=== PATIENT | male | born 1975 | race Caucasian/White ===

== ENCOUNTER 2021-01-22 07:34 | Emergency (ER) | payer OTHER ==
[~2021-01-22] VITALS: Ht 188 cm; Wt 109.0 kg
[2021-01-22 07:55] VITALS: BP 115/89
--- NOTE | 2021-01-22 08:22 | RAD ---
XR EXAM OF ANKLE_LEFT 3V History: Reason: high ankle pain, r/o trauma / Spl. Instructions: / History: Technique: 3 views left ankle Comparison: None. Findings: Normal alignment. Symmetric ankle mortise. No fracture. Impression: 1. No acute osseous abnormality. Electronically signed by: Russ Godfrey DO (01/22/2021 8:19 AM) [id number]
--- NOTE | 2021-01-22 08:37 | RAD ---
INDICATION: Reason: ankle pain / Spl. Instructions: / History: COMPARISON: None. TECHNIQUE: Grayscale, color and doppler ultrasound images were obtained of the left lower extremity v enous vasculature. LEFT: No thrombus identified in the common femoral vein, femoral vein, popliteal vein or visualized calf ve ins. IMPRESSION: * No thrombus identified in deep venous system of the left lower extremity. Electronically signed by: Osman Hayes MD (01/22/2021 8:34 AM) [id number]
--- NOTE | 2021-01-22 08:49 | PHYS DOC ---
Past History Additional Past Medical Histor: PE, Past Surgical History: Cholecystectomy Additional Past Surgical Histo: cardiac cath, PFO Alcohol Use: Rarely General Adult EDM: Chief Complaint: LOWER EXT PAIN HPI: HPI: 45-year-old male past medical history of gerd, PE on Eliquis and PFO, presents the ED with complaints of left ankle pain that started this morning, reports sharp pain shoots to his toes. Patient with a history of blood clots in his lungs and is concerned for a blood clot in his ankle or leg. Denies any increased physical activity or known injury. No prior injury to the left ankle joint. Is able to bear weight. Is not vaccinated for Covid because "I don't want to get a blood clot." Review of Systems: Review of Systems: Constitutional: Denies fever or chills Eyes: Denies change in visual acuity HENT: Denies nasal congestion or sore throat Respiratory: Denies cough or shortness of breath Cardiovascular: Denies chest pain or edema GI: Denies nausea, vomiting, Musculoskeletal: Denies back pain or joint swelling/deformity Integument: Denies rash or diaphoresis Neurologic: Denies focal weakness or sensory changes Psychiatric: Denies depression or anxiety Allergies: Allergies: Allergies Coded Allergies Type Severity Reaction Last Updated Verified Akbqwmf-Tfw-Lir Reductase Inhibitor Allergy Unknown 01/22/21 Yes prednisone Allergy Unknown 01/22/21 Yes Physical Exam: PE: Constitutional: Well developed, well nourished, no acute distress, non-toxic appearance, tall HENT: Normocephalic, atraumatic, Eyes: EOMI, conjunctiva normal, no discharge. Neck: Normal range of motion, supple, Cardiovascular: S1/2 present, regular rhythm Lungs & Thorax: Speaking in full sentences, bilateral equal chest rise, no tachypnea or increased work of breathing Skin: Warm, dry, no erythema, no rash. [] Extremities: no cyanosis, no unilateral lower extremity edema, L dp/pt intact, left ding w/varicose veins, ttp over left anterior ankle joint, no tenderness over left malleoli/fibular head/calcaneus, left L5/S1 sensation intact, cap refill less than 1 second, left ankle and knee with full range of motion Neurologic: Alert and oriented X 3, normal motor function, normal sensory function, no focal deficits noted. [] Psychologic: Affect normal, judgement normal, mood normal. [] Current Patient Data: Vital Signs: Vital Signs Date Time Temp Pulse Resp B/P (MAP) Pulse Ox O2 Delivery O2 Flow Rate FiO2 01/22/21 07:55 97.7 72 18 115/89 99 Room Air EKG: EKG: [] Radiology/Procedures: Radiology/Procedures: []IMAGING REPORT Signed PATIENT: SOLITARIO ALANIZ ACCOUNT: [id number] : 1975 LOCATION: ER AGE: 45 SEX: M EXAM STATUS: REG ER ORD. PHYSICIAN: ADAM GRANADOS DO REASON: ankle pain PROCEDURE: VENOUS LOWER EXTREMITY LEFT INDICATION: Reason: ankle pain / Spl. Instructions: / History: COMPARISON: None. TECHNIQUE: Grayscale, color and doppler ultrasound images were obtained of the left lower extremity venous vasculature. LEFT: No thrombus identified in the common femoral vein, femoral vein, popliteal vein or visualized calf veins. IMPRESSION: * No thrombus identified in deep venous system of the left lower extremity. Electronically signed by: Ninfa Hayes MD (01/22/2021 8:34 AM) [id number] IMAGING REPORT Signed PATIENT: SOLITARIO ALANIZ ACCOUNT: [id number] : 1975 LOCATION: ER AGE: 45 SEX: M EXAM STATUS: REG ER ORD. PHYSICIAN: ADAM GRANADOS DO REASON: high ankle pain, r/o trauma PROCEDURE: ANKLE LEFT 3V XR EXAM OF ANKLE_LEFT 3V History: Reason: high ankle pain, r/o trauma / Spl. Instructions: / History: Technique: 3 views left ankle Comparison: None. Findings: Normal alignment. Symmetric ankle mortise. No fracture. Impression: 1. No acute osseous abnormality. Electronically signed by: Russ Godfrey DO (01/22/2021 8:19 AM) [id number] DICTATED AND SIGNED BY: RUSS GODFREY DO DATE: 01/22/21 0817 CC: RYAN GUZMAN MD; ADAM GRANADOS DO ~MTH0 0 DICTATED AND SIGNED BY: NINFA HAYES MD DATE: 01/22/21 0834 CC: RYAN GUZMAN MD; [facility] ~MTH0 0 Heart Score: C/O Chest Pain: No Risk Factors: Risk Factors: DM, Current or recent (<one month) smoker, HTN, HLP, family history of CAD, obesity. Risk Scores: Score 0 - 3: 2.5% MACE over next 6 weeks - Discharge Home Score 4 - 6: 20.3% MACE over next 6 weeks - Admit for Clinical Observation Score 7 - 10: 72.7% MACE over next 6 weeks - Early Invasive Strategies Course & Med Decision Making: Course & Med Decision Making Pertinent Labs and Imaging studies reviewed. (See chart for details) Concern for atraumatic, localized left anterior ankle pain with radiation up his leg, no pain over right toes or knee. Patient denies any known trauma or crush injury. Neurovascular intact. Left ankle joint is warmer when compared to right ankle joint. No obvious effusion. Patient later reports history of gout- only takes omeprazole and Eliquis. Denies urethral discharge or dysuria. No calve swelling. Patient took 800 mg ibuprofen prior to arrival. In addition NSAIDs will prescribe steroid taper and discharge home with strict ED return precautions were given for severe pain, joint swelling or effusion, skin color changes/rash, repeat injury or neurologic deficits. Recommended nonweightbearing until pain subsides, crutches offered. Encouraged urgent outpatient follow-up with PMD and orthopedic surgery if pain persists. Life- threatening processes were considered but are low suspicion at this time, given history, physical exam and ED workup. Pt was educated on all prescription medications and adverse effects. All patient's questions were answered and pt was stable at time of discharge. Life/limb-threatening differential includes but is not limited to, avascular necrosis, septic arthritis, malignancy, compartment syndrome, fracture/ligamentous injury/overuse, decompression sickness, seronegative spondyloarthropathies, trauma including dislocation/fracture, Lyme disease, lupus, arthritis differentials, gout/pseudogout or decompression sickness. I have spoken with the patient and/or caregivers. I explained the patient's condition, diagnoses and treatment plan based on the information available to me at this time. I have answered the patient and/or caregiver's questions and addressed any concerns. The patient and/or caregivers have a good understanding of patient's diagnosis, condition and treatment plan as can be expected at this point. Vital signs have been stable. Patient's condition is stable and a ppropriate for discharge from the emergency department. Patient will pursue further outpatient evaluation with primary care physician or other designated or consulting physician as outlined in the discharge instructions. The patient and/or caregivers are agreeable to this plan of care and follow-up instructions have been explained in detail. The patient and/or caregivers have received these instructions in written form and have expressed an understanding of the discharge instructions. The patient and/or caregivers are aware that any significant change of condition or worsening of symptoms should prompt immediate return to this or the closest emergency department or call to 6. Eron Disclaimer: Jammin Java Disclaimer: This electronic medical record was generated, in whole or in part, using a voice recognition dictation system. Departure Departure: Impression: Primary Impression: Acute left ankle pain Disposition: HOME / SELF CARE / HOMELESS Condition: STABLE Referrals: RYAN GUZMAN MD (PCP) [facility]-Dr. Winn or Dr. Hopson [address], [address] [place] [address] Patient Instructions: Ankle Pain, RICE - Routine Care for Injuries Additional Instructions: FOLLOW UP WITH ORTHOPEDICS: For definitive management of left ankle pain [facility] [id number] [address] EMERGENCY DEPARTMENT GENERAL DISCHARGE INSTRUCTIONS Thank you for coming to [facility] (ED) today and trusting us with you care. We trust that you had a positivie experience in our Emergency Department. If you wish to speak to the department management, you may call the director at [phone]. YOUR FOLLOW UP INSTRUCTIONS ARE FOLLOWS: 1. Do you have a private Doctor? If you do not have a private doctor, please ask for a resource list of physicians or clinics that may be able to assist you with fo llow up care. ADDITIONAL INSTRUCTIONS AND INFORMATION: 1. Your care today has been supervised by a physician who is specially trained in emergency care. Many problems require more than one evaluation for a complete diagnosis and treatment. We recommend that you schedule your follow up appointment as recommended to ensure complete treatment of you illness or injury. If you are unable to obtain follow up care and continue to have a problem, or if your condition worsens, we recommend that you return to the ED. 2. We are not able to safely determine your condition over the phone nor are we able to give sound medical advice over the phone. For these safety reasons, if you call for medical advice we will ask you to come to the ED for further evaluation. 3. If you have any questions regarding these discharge instructions please call the ED at [phone]. SAFETY INFORMATION: In the interest of safety, wellness, and injury prevention; we encourage you to wear your sealbelt, if you smoke; quite smoking, and we encourage family to use a protective helmet for bicycling and other sporting events that present an increased risk for head injury. IF YOUR SYMPTOMS WORSEN OR NEW SYMPTOMS DEVELOP, OR YOU HAVE CONCERNS ABOUT YOUR CONDITION; OR IF YOUR CONDITION WORSENS WHILE YOU ARE WAITING FOR YOUR FOLLOW UP APPOINTMENT; EITHER CONTACT YOUR PRIMARY CARE DOCTOR, THE PHYSICIAN WHOSE NAME AND NUMBER YOU WERE GIVEN, OR RETURN TO THE ED IMMEDIATELY. Scripts Methylprednisolone (MEDROL) 4 Mg Tab.ds.pk 1 PKG PO UD for anklepain, #1 PKG Prov: ADAM GRANADOS DO 01/22/21 ADAM GRANADOS DO Jan 22, 2021 08:49
[2021-01-22] MEDS ORDERED: PRED-220 PO (09:10)
[2021-01-22] MEDS ORDERED: DEXAMETHASONE 4 MG TABLET PO ONE (09:15)
[2021-01-22] MEDS ORDERED: LIDOCAINE (700MG/PATCH) PATCH. TD ONE (09:20)
[2021-01-22] MEDS ORDERED: METH4TAB2 PO (09:33)
[2021-01-22] MEDS ORDERED: PATCH REMOVAL. MC SCH (21:00)
== END 2021-01-22 09:44 | disposition home or self-care (01) ==
LOC: ER 07:34
DX: M25.572 Pain in left ankle and joints of left foot (principal); Z88.8 Allergy status to other drugs, medicaments and biological substances; Z90.49 Acquired absence of other specified parts of digestive tract
CPT/HCPCS: 73610; 93971; 99284; J8540

== ENCOUNTER 2021-09-09 12:15 | Emergency (ER) | payer OTHER ==
[~2021-09-09] VITALS: Ht 188 cm; Wt 109.0 kg
[~2021-09-09 12:15] MED LIST: METH4TAB2 PO; PRED-220 PO
[2021-09-09 12:35] VITALS: BP 126/81
[2021-09-09] MEDS ORDERED: IV NORMAL SALINE 1,000ML 1,000 ML IV ONE (12:45)
[2021-09-09] MEDS ORDERED: RIVA20TA2 PO (12:45)
--- NOTE | 2021-09-09 13:04 | PHYS DOC ---
Past History Additional Past Medical Histor: PE, Past Surgical History: Cholecystectomy Additional Past Surgical Histo: cardiac cath, PFO Alcohol Use: Rarely General Adult EDM: Chief Complaint: ALTERED MENTAL STATUS HPI: HPI: 45-year-old male presents with altered mental status. The patient tells me that he switched from Eliquis to Xarelto less than week ago. He has been taking this as prescribed. Today, the patient feels off. He states that he feels like his body is vibrating and his mentation is foggy. He states it almost feels like a drunk feeling but he has not been drinking. His family member who accompanies him states that he is acting different today. 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 This is the only medication the patient takes. He has no other significant medical problems. He denies headache, fever, chills. He has some fatigue. He has had some chest pressure but he does not call it pain. Denies shortness of breath or diaphoresis. Review of Systems: Review of Systems: Constitutional: Denies fever or chills Eyes: Denies change in visual acuity HENT: Denies nasal congestion or sore throat Respiratory: Denies cough or shortness of breath Cardiovascular: Chest pain GI: Denies abdominal pain, nausea, vomiting, bloody stools or diarrhea : Denies dysuria Musculoskeletal: Denies back pain or joint pain Integument: Denies rash Neurologic: Foggy, slow mentation. Denies headache, focal weakness or sensory changes Endocrine: Denies polyuria or polydipsia Lymphatic: Denies swollen glands Psychiatric: Denies depression or anxiety Current Medications: Current Meds: Current Medications Medications (Trade) Dose Ordered Sig/[facility] Start Time Stop Time Status Last Admin Dose Admin Sodium Chloride 1,000 ml @ 1,000 mls/hr 1X ONCE 09/09/21 12:45 09/09/21 13:44 Allergies: Allergies: Allergies Coded Allergies Type Severity Reaction Last Updated Verified Ophwivg-GSL-MmJ Reductase Inhibitor Allergy Unknown 01/22/21 Yes prednisone Allergy Unknown 01/22/21 Yes Physical Exam: PE: Constitutional: Well developed, well nourished, no acute distress, non-toxic appearance. [] HENT: Normocephalic, atraumatic, bilateral external ears normal, oropharynx moist, no oral exudates, nose normal. [] Eyes: PERRLA, EOMI, conjunctiva normal, no discharge. [] Neck: Normal range of motion, no tenderness, supple, no stridor. [] Cardiovascular: Heart rate regular rhythm, no murmur [] Lungs & Thorax: Bilateral breath sounds clear to auscultation [] Abdomen: Bowel sounds normal, soft, no tenderness, no masses, no pulsatile masses. [] Skin: Warm, dry, no erythema, no rash. [] Back: No tenderness, no CVA tenderness. [] Extremities: No tenderness, no cyanosis, no clubbing, ROM intact, no edema. [] Neurologic: Alert and oriented X 3, normal motor function, normal sensory function, no focal deficits noted. [] Psychologic: Affect normal, judgement normal, mood concerned. [] Current Patient Data: Vital Signs: Vital Signs Date Time Temp Pulse Resp B/P (MAP) Pulse Ox O2 Delivery O2 Flow Rate FiO2 09/09/21 12:35 98.0 79 126/81 (96) 98 EKG: EKG: Sinus rhythm, rate 72, normal axis, no ST elevation or depression. [] Radiology/Procedures: Radiology/Procedures: [] Impressions: CT HEAD WITHOUT CONTRAST 09/09/2021 1:26 PM Indication: Altered mental status, taste of blood in his mouth Comparison: None available Procedure: Multidetector CT imaging of the head was performed without the administration of contrast. Findings: There is no evidence of acute intracranial hemorrhage. There is no evidence of acute territorial infarction. Please note that CT is limited for evaluation of acute ischemia. No mass effect or midline shift is identified . The ventricles and basilar cisterns have an appropriate appearance. No abnormal extra-axial fluid collections are seen. No acute osseous changes are identified. Impression: No evidence of acute intracranial abnormality CT DOSING PQRS STATEMENT: One or more of the following individualized dose reduction techniques were utilized for this examination: 1. Automated exposure control 2. Adjustment of the mA and/or kV according to patient size 3. Use of iterative reconstruction technique Electronically signed by: Justus Kaur MD (09/09/2021 1:34 PM) [id number] DICTATED AND SIGNED BY: JUSTUS KAUR MD DATE: 09/09/21 133 CC: KAVITHA NICHOLAS DO; RYAN GUZMAN MD ~MTH0 0 Heart Score: C/O Chest Pain: Yes HEART Score for Chest Pain: HEART Score for Chest Pain Response (Comments) Value History Slighlty/Non-Suspicious 0 ECG Normal 0 Age >45 - < 65 1 Risk Factors 1 or 2 Risk Factors 1 Troponin < Normal Limit 0 Total 2 Risk Factors: Risk Factors: DM, Current or recent (<one month) smoker, HTN, HLP, family history of CAD, obesity. Risk Scores: Score 0 - 3: 2.5% MACE over next 6 weeks - Discharge Home Score 4 - 6: 20.3% MACE over next 6 weeks - Admit for Clinical Observation Score 7 - 10: 72.7% MACE over next 6 weeks - Early Invasive Strategies Course & Med Decision Making: Course & Med Decision Making Pertinent Labs and Imaging studies reviewed. (See chart for details) The patient's EKG is unremarkable. His head CT is negative for acute findings. His labs are unremarkable. His urinalysis is negative for infection. His urin e drug screen was positive for marijuana. This could be the cause of the patient's symptoms. The marijuana could have been laced with another synthetic substance. The patient used an edible marijuana product 2 days ago and did not have complications that time. Was also from a licensed dispensary [place]. I do not currently see any evidence of a life-threatening illness at this time. He is stable for discharge. If any new or worsening symptoms develop, the patient should return to the emergency room for further evaluation and management. Patient states verbal understanding. He is stable for discharge at this time. [] Dragon Disclaimer: Dragbob Disclaimer: This electronic medical record was generated, in whole or in part, using a voice recognition dictation system. Departure Departure: Impression: Primary Impression: Altered mental status Disposition: 01 HOME / SELF CARE / HOMELESS Condition: STABLE Referrals: RYAN GUZMAN MD (PCP) Patient Instructions: Altered Mental Status KAVITHA NICHOLAS DO Sep 09, 2021 13:04
[2021-09-09 13:31] LABS: BASO # 0.1 x10^3/uL (0.0-0.2); BASO % 1 % (0-3); EOS # 0.2 x10^3/uL (0.0-0.7); EOS % 2 % (0-3); HEMATOCRIT 43.6 % (39.0-53.0); HEMOGLOBIN 14.8 g/dL (13.0-17.5); LYMPH # 2.2 x10^3/uL (1.0-4.8); LYMPH % 19 % (24-48); MEAN CORPUSCULAR HEMOGLOBIN 30 pg (25-35); MEAN CORPUSCULAR HGB CONC 34 g/dL (31-37); MEAN CORPUSCULAR VOLUME 89 fL (79-100); MONO # 0.4 x10^3/uL (0.0-1.1); MONO % 3 % (0-9); NEUT # 8.8 x10^3uL (1.8-7.7); NEUT % 75 % (31-73); PLATELET COUNT 316 x10^3/uL (140-400); RED BLOOD COUNT 4.88 x10^6/uL (4.30-5.70); RED CELL DISTRIBUTION WIDTH 13.5 % (11.5-14.5); WHITE BLOOD COUNT 11.7 x10^3/uL (4.0-11.0)
--- NOTE | 2021-09-09 13:37 | RAD ---
CT HEAD WITHOUT CONTRAST 09/09/2021 1:26 PM Indication: Altered mental status, taste of blood in his mouth Comparison: None available Procedure: Multidetector CT imaging of the head was performed without the administration of contrast. Findings: There is no evidence of acute intracranial hemorrhage. There is no evidence of acute territ orial infarction. Please note that CT is limited for evaluation of acute ischemia. No mass effect or midline shift is identified . The ventricles and basilar cisterns have an appropriate appearance. No abnormal extra-axial fluid collections are seen. No acute osseous changes are identified. Impression: No evidence of acute intracranial abnormality CT DOSING PQRS STATEMENT: One or more of the following individualized dose reduction techniques were utilized for this examinat ion: 1. Automated exposure control 2. Adjustment of the mA and/or kV according to patient size 3. Use of iterative reconstruction technique Electronically signed by: Justus Vargas MD (09/09/2021 1:34 PM) [id number]
[2021-09-09 13:39] LABS: AMPHETAMINE/METHAMPHETAMINE NEG (NEG); BARBITURATES NEG (NEG); BENZODIAZEPINES NEG (NEG); CANNABINOIDS POS (NEG); COCAINE NEG (NEG); CREATININE 1.2 mg/dL (0.7-1.3); GFR 64.9; METHADONE NEG (NEG); OPIATES NEG (NEG); PHENCYCLIDINE NEG (NEG); POTASSIUM 3.9 mmol/L (3.5-5.1)
[2021-09-09 13:43] LABS: BACTERIA,URINE 0 /HPF (0-FEW); CLARITY,URINE CLEAR; COLOR,URINE YELLOW; GLUCOSE,URINE NEG (NEG); NITRITE,URINE NEG (NEG); RBC,URINE 0 /HPF (0-2); UROBILINOGEN,URINE 0.2 mg/dL (0.2 mg/dL); WBC,URINE 0 /HPF (0-4)
[2021-09-09 13:48] LABS: ALBUMIN/GLOBULIN RATIO 1.2 (1.0-1.7); TOTAL BILIRUBIN 0.8 mg/dL (0.2-1.0); TOTAL PROTEIN 7.4 g/dL (6.4-8.2)
--- NOTE | 2021-09-09 16:52 | EKG ---
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
== END 2021-09-09 14:30 | disposition home or self-care (01) ==
LOC: ER 12:15
DX: R41.82 Altered mental status, unspecified (principal); R07.89 Other chest pain; Z79.01 Long term (current) use of anticoagulants; Z88.8 Allergy status to other drugs, medicaments and biological substances
CPT/HCPCS: 36415; 70450; 80053; 80307; 81001; 83605; 84484; 85025; 93005; 96360; 99284; J7030